=== PATIENT | male | born 1990 | race Caucasian/White ===

== ENCOUNTER 2018-07-24 17:41 | Emergency (ER) | payer BC ==
[2018-07-24 18:28] VITALS: BP 146/73
[2018-07-24] MEDS ORDERED: cefTRIAXone VIAL(*) 250 MG VIAL IM ONE (19:13)
[2018-07-24] MEDS ORDERED: Azithromycin TAB* 250 MG PO ONE (19:13)
[2018-07-24] MEDS ORDERED: Lidocaine 1%* 5 ML VIAL INJ ONE (19:14)
--- NOTE | 2018-07-24 19:18 | UC ---
Complaint Male HPI - HPI Summary HPI Summary: 27-year-old male comes to clinic today because his former sex partner told him she had been diagnosed with chlamydia. She told him about a week and a half ago. He has had some dysuria and some intermittent right flank pain. No fevers or chills. No prior history of STI's. - History of Current Complaint Chief Complaint: UCGeneralIllness Stated Complaint: PERSONAL Time Seen by Provider: 07/24/18 18:49 Pain Intensity: 3 - Allergies/Home Medications Allergies/Adverse Reactions: Allergies Allergy/AdvReac Type Severity Reaction Status Date / Time No Known Allergies Allergy Verified 07/24/18 18:22 Home Medications: Home Medications NK [No Home Medications Reported] 07/24/18 [History Confirmed 07/24/18] PMH/Surg Hx/FS Hx/Imm Hx Previously Healthy: Yes - Surgical History Surgical History: None - Family History Known Family History: Positive: Hypertension Negative: Diabetes - Social History Alcohol Use: Rare Substance Use Type: None Smoking Status (MU): Former Smoker Type: Cigarettes Amount Used/How Often: 1 PPD - Immunization History Most Recent Tetanus Shot: unsure Review of Systems Constitutional: Negative Skin: Negative Eyes: Negative ENT: Negative Respiratory: Negative Cardiovascular: Negative Gastrointestinal: Negative Genitourinary: Dysuria, Vaginal/Penile Burning Motor: Negative Neurovascular: Negative Musculoskeletal: Negative Neurological: Negative Psychological: Negative Is Patient Immunocompromised?: No All Other Systems Reviewed And Are Negative: Yes Physical Exam Triage Information Reviewed: Yes Appearance: Well-Appearing, No Pain Distress, Well-Nourished Vital Signs: Initial Vital Signs Temp 97.7 F 07/24/18 18:23 Pulse 67 07/24/18 18:23 Resp 16 07/24/18 18:23 BP 146/73 07/24/18 18:23 Pulse Ox 100 07/24/18 18:23 Vital Signs Reviewed: Yes Eye Exam: Normal Eyes: Positive: Conjunctiva Clear Neck exam: Normal Neck: Positive: Supple Respiratory Exam: Normal Respiratory: Positive: Lungs clear, Normal breath sounds, No respiratory distress, No accessory muscle use Cardiovascular Exam: Normal Cardiovascular: Positive: RRR Abdomen Description: Positive: Nontender, Soft Bowel Sounds: Positive: Present Male Genital Exam: Positive: Normal Genitalia. Negative: Lesions, Scrotum Tenderness (R), Scrotum Tenderness (L), Testicular Tenderness (R), Testicular Tenderness (L), Urethral Discharge Musculoskeletal Exam: Normal Musculoskeletal: Positive: Strength Intact, ROM Intact Neurological Exam: Normal Neurological: Positive: Alert Psychological Exam: Normal Psychological: Positive: Age Appropriate Behavior Skin Exam: Normal Complaint Male Course/Dx - Course Course Of Treatment: Patient received Rocephin 250 mg IM and azithromycin 1 g by mouth here in clinic. The gonorrhea and chlamydia results are pending. I discussed with him getting retested in 3 months. Also discussed with him if his symptoms do not completely resolve within 1-2 weeks he should get rechecked at the earliest 3-4 weeks from today to determine if he needs to be rechecked or retreated sooner. - Differential Dx/Diagnosis Provider Diagnoses: CHLAMYDIA EXPOSURE. URETHRITIS Discharge - Sign-Out/Discharge Documenting (check all that apply): Patient Departure All imaging exams completed and their final reports reviewed: No Studies - Discharge Plan Condition: Stable Disposition: HOME Patient Education Materials: Nonspecific Urethritis in Men (ED), Chlamydia (ED) , Sexually Transmitted Diseases (ED) Referrals: [facility] [place] [facility] [Outside] Additional Instructions: FOLLOW UP WITH YOUR DOCTOR IF NOT COMPLETELY IMPROVED. PLAN TO BE RETESTED IN 3 MONTHS. GET RECHECKED FOR ANY WORSENING OF YOUR CONDITION OR QUESTIONS OR CONCERNS. - Billing Disposition and Condition Condition: STABLE Disposition: Home
== END 2018-07-24 20:02 | disposition home or self-care (01) ==
LOC: UCCORT 17:41
DX: Z20.2 Contact with and (suspected) exposure to infections with a predominantly sexual mode of transmission (principal); N34.2 Other urethritis; Z87.891 Personal history of nicotine dependence
CPT/HCPCS: 81003; 87491; 87591; 96372; 99212; A9270-GY; G0463; J0696